=== PATIENT | male | born 1995 | race Two or more races ===

== ENCOUNTER 2016-06-23 14:42 | Emergency (ER) | payer OTHER ==
[~2016-06-23] VITALS: Ht 170.2 cm; Wt 58.6 kg
[2016-06-23 14:43] VITALS: BP 124/67
== END 2016-06-23 15:40 | disposition home or self-care (01) ==
LOC: ED 15:15
DX: S21.112D Laceration without foreign body of left front wall of thorax without penetration into thoracic cavity, subsequent encounter (principal); X58.XXXD Exposure to other specified factors, subsequent encounter; Y92.89 Other specified places as the place of occurrence of the external cause; Y99.9 Unspecified external cause status
CPT/HCPCS: 99282